=== PATIENT | female | born 1960 | race Hispanic/Latino ===

== ENCOUNTER 2019-12-22 16:56 | Inpatient (IN) | payer OTHER, SELFPAY ==
[~2019-12-22] VITALS: Ht 162.6 cm; Wt 66.7 kg
[2019-12-22 17:26] LABS: BASOPHILS % (AUTO) 0.7 % (0.0-5.0); HEMATOCRIT 24.6 % (36-48); LYMPHOCYTES % (AUTO) 9.6 % (21.0-51.0); MEAN CORPUSCULAR HEMOGLOBIN 29.2 pg (27.0-33.0); MEAN CORPUSCULAR VOLUME 83.4 fL (79-99); MONOCYTES % (AUTO) 24.4 % (3.0-13.0); NEUTROPHILS % (AUTO) 64.6 % (40.0-77.0); PLATELET COUNT (AUTO) 67 K/uL (130-400); RED BLOOD CELL COUNT(AUTO) 2.95 MIL/uL (4.00-5.50); RED CELL DISTRIBUTION WIDTH 16.2 % (11.0-15.5); WHITE BLOOD COUNT (AUTO) 1.4 K/uL (4.8-10.8)
[2019-12-22 17:35] LABS: CARBON DIOXIDE 23 mmol/L (21-32); CHLORIDE 93 mmol/L (101-111); CREATININE 0.6 mg/dL (0.5-1.5); GLOMERULAR FILTR. RATE CALC 109 mL/min (>60); GLUCOSE,RANDOM 119 mg/dL (70-105); POTASSIUM 3.2 mmol/L (3.5-5.1); SODIUM SERUM 126 mmol/L (136-145); UREA NITROGEN, BLOOD 16 mg/dL (7-18)
[2019-12-22 17:38] LABS: INR 0.97 (0.85-1.15); PARTIAL THROMBOPLASTIN TIME 34.7 SEC (26.3-35.5); PROTHROMBIN TIME 10.5 SEC (9.6-11.6)
[2019-12-22] MEDS ORDERED: ZOSYN 3.375GM+NS 50ML 50 ML IV ONE (17:53)
[2019-12-22 17:54] LABS: ALANINE AMINOTRANSFERASE 164 U/L (12-78); ALBUMIN 2.4 g/dL (3.5-5.0); ASPARTATE AMINOTRANSFERASE 189 U/L (10-37); BILIRUBIN,TOTAL 0.8 mg/dL (0.2-1.0); CREATINE KINASE, TOTAL 117 U/L (21-232); MYOGLOBIN 152 ng/mL (10-92); TROPONIN I < 0.04 ng/mL (0.00-0.06)
[2019-12-22] MEDS ORDERED: HYDRALAZINE HCL 20 MG/ML VIAL IV PRN (19:30)
[2019-12-22] MEDS ORDERED: CEFTRIAXONE SODIUM 1 GM IVP SCH (19:30)
[2019-12-22] MEDS ORDERED: ACETAMINOPHEN 325 MG TAB PO PRN ×2 (19:30)
[2019-12-22] MEDS ORDERED: ERGOCALCIFEROL (VITAMIN D2) 50,000 UNIT CAPSULE PO ONE (19:30)
[2019-12-22] MEDS ORDERED: LACTULOSE 20 GM/30 ML UDCUP PO PRN (19:30)
[2019-12-22] MEDS ORDERED: ONDANSETRON HCL 4 MG/2 ML VIAL IV PRN (19:30)
[2019-12-22] MEDS ORDERED: POTASSIUM CHLORIDE 10MEQ/100ML 100 ML IV PRN (19:45)
[2019-12-22] MEDS ORDERED: POTASSIUM CHLORIDE 10% ELIXIR 20 MEQ/15 ML UDCUP PO PRN (19:45)
[2019-12-22] MEDS ORDERED: LIDOCAINE HCL-MPF 1% 2ML VIAL IV PRN (19:45)
[2019-12-22] MEDS ORDERED: ALBUTEROL INHALER 90MCG/INH IH PRN (20:00)
[2019-12-22] MEDS ORDERED: IOHEXOL-350 75 ML VIAL IV ONE (20:18)
[2019-12-22] MEDS ORDERED: DOXYCYCLINE 100MG+NS 250ML IV SCH (21:00)
[2019-12-22] MEDS ORDERED: INSULIN HUMULIN R 100 UNIT/ML 3ML SQ SCH (21:00)
[2019-12-22] MEDS ORDERED: METHYLPREDNISOLONE SOD SUCC 40MG/ML 1ML ONE (21:31)
[2019-12-22] MEDS ORDERED: DOXYCYCLINE 100MG+NS 250ML 250 ML IV ONE (21:31)
[2019-12-22] MEDS ORDERED: CEFTRIAXONE SODIUM 1 GM ONE (21:31)
[2019-12-22] MEDS ORDERED: ERGOCALCIFEROL (VITAMIN D2) 50,000 UNIT CAPSULE ONE (21:31)
[2019-12-23] MEDS ORDERED: ACETAMINOPHEN 325 MG TAB ONE ×2 (05:29→20:07)
[2019-12-23] MEDS ORDERED: METHYLPREDNISOLONE SOD SUCC 40MG/ML 1ML ONE ×4 (06:58→21:35)
[2019-12-23] MEDS ORDERED: CEFTRIAXONE SODIUM 500 MG VIAL ONE (07:30)
[2019-12-23] MEDS ORDERED: ZINC SULFATE 220 CAPSULE ONE (07:31)
[2019-12-23] MEDS ORDERED: DOXYCYCLINE HYCLATE 100 MG TABLET PO ONE (07:31)
[2019-12-23] MEDS ORDERED: ASCORBIC ACID 500 MG TAB ONE (07:31)
[2019-12-23] MEDS ORDERED: FAMOTIDINE/PF 20 MG/2 ML VIAL IV ONE ×2 (07:31→21:36)
[2019-12-23] MEDS ORDERED: SODIUM CHLORIDE 0.9% 50 ML IV ONE (07:32)
[2019-12-23 08:27] LABS: APPEARANCE,URINE Cloudy (CLEAR); BILIRUBIN,URINE Negative (NEGATIVE); COLOR,URINE Yellow (YELLOW); GLUCOSE, URINE (UA) Negative (NEGATIVE); KETONES,URINE Negative (NEGATIVE); LEUKOCYTE ESTERASE ,URINE Negative (NEGATIVE); NITRATE,URINE Negative (NEGATIVE); OCCULT BLOOD,URINE Trace (NEGATIVE); PROTEIN,URINE POS 1+ mg/dL (NEGATIVE); UROBILINOGEN,URINE 0.2 mg/dL (0.2-1.0)
[2019-12-23 08:34] LABS: RBC,URINE 0-1 /HPF (0-1)
[2019-12-23 08:35] LABS: BACTERIA,URINE Moderate /HPF (None Seen)
[2019-12-23] MEDS ORDERED: ZINC SULFATE 220 CAPSULE PO SCH (09:00)
[2019-12-23] MEDS ORDERED: ENOXAPARIN SODIUM 40 MG/0.4 ML SYRINGE SQ SCH (09:00)
[2019-12-23] MEDS ORDERED: POTASSIUM CHLORIDE 20 MEQ ERTAB PO ONE (11:35)
[2019-12-23] MEDS ORDERED: SODIUM CHLORIDE 0.9% 1000ML 1,000 ML IV SCH (15:00)
[2019-12-23 16:30] LABS: CREATININE 0.8 mg/dL (0.5-1.5); POTASSIUM 3.7 mmol/L (3.5-5.1)
[2019-12-23] MEDS ORDERED: DOXYCYCLINE 100MG+NS 250ML 250 ML IV ONE (21:36)
[2019-12-23] MEDS ORDERED: CEFTRIAXONE SODIUM 1 GM ONE (21:36)
[2019-12-24 06:32] LABS: CRP QUANTITATIVE 188.5 mg/L (0.00-9.0)
[2019-12-24 08:05] VITALS: BP 110/64
[2019-12-24] MEDS: FAMOTIDINE 20MG TAB 20 MG TAB PO SCH ×2 (09:00→21:46)
[2019-12-24] MEDS: ASCORBIC ACID 500 MG TAB PO SCH (09:00)
[2019-12-24 09:13] LABS: HEPATITIS A ANTIBODY IGM Negative (Negative); HEPATITIS B CORE IGM Negative (Negative); HEPATITIS Bs ANTIGEN SCREEN P Negative (Negative)
[2019-12-24] MEDS ORDERED: ASCORBIC ACID 500 MG TAB ONE (09:35)
[2019-12-24] MEDS ORDERED: METHYLPREDNISOLONE SOD SUCC 40MG/ML 1ML ONE (09:35)
[2019-12-24] MEDS ORDERED: ZINC SULFATE 220 CAPSULE ONE (09:36)
[2019-12-24] MEDS ORDERED: DOXYCYCLINE 100MG+NS 250ML 250 ML IV ONE (09:36)
[2019-12-24] MEDS ORDERED: FAMOTIDINE 20MG TAB 20 MG TAB ONE (09:36)
[2019-12-24] MEDS ORDERED: CEFTRIAXONE SODIUM 1 GM ONE (09:37)
[2019-12-24] MEDS ORDERED: LOSA100T58 PO (10:54)
[2019-12-24] MEDS ORDERED: ATOR10 PO (10:54)
[2019-12-24 11:30] LABS: POTASSIUM 3.3 mmol/L (3.5-5.1)
[2019-12-24 12:00] VITALS: BP 118/68
[2019-12-24] MEDS ORDERED: POTASSIUM CHLORIDE 20 MEQ ERTAB PO ONE (12:39)
[2019-12-24 13:57] LABS: CREATININE 0.8 mg/dL (0.5-1.5)
[2019-12-24] MEDS: METHYLPREDNISOLONE SOD SUCC 40MG/ML 1ML IVP SCH ×2 (14:00→21:46)
[2019-12-24 14:40] LABS: HEMATOCRIT 25.6 % (36-48); LYMPHOCYTES % (AUTO) 12.9 % (21.0-51.0); MEAN CORPUSCULAR HEMOGLOBIN 28.9 pg (27.0-33.0); MONOCYTES % (AUTO) 13.3 % (3.0-13.0); NEUTROPHILS % (AUTO) 72.8 % (40.0-77.0); PLATELET COUNT (AUTO) 124 K/uL (130-400); RED BLOOD CELL COUNT(AUTO) 3.01 MIL/uL (4.00-5.50); RED CELL DISTRIBUTION WIDTH 16.7 % (11.0-15.5); WHITE BLOOD COUNT (AUTO) 2.1 K/uL (4.8-10.8)
[2019-12-24 15:20] LABS: LYMPHOCYTES % (MANUAL) 19 % (22-44); MONOCYTES % (MANUAL) 7 % (2-9); REACTIVE LYMPHOCYTES 2 % (0-0); SEGMENTED NEUTROPHILS % 72 % (40-70)
[2019-12-24 15:21] LABS: MAN.DIFF COMMENT-IMPRESSION MANUAL DIFFERENTIAL
[2019-12-24 15:44] VITALS: BP 119/73
[2019-12-24 19:28] VITALS: BP 124/77
[2019-12-24] MEDS: CEFTRIAXONE SODIUM 1 GM IVP SCH (21:00)
[2019-12-24] MEDS: POTASSIUM CHLORIDE 20 MEQ ERTAB PO PRN (21:48)
[2019-12-24] MEDS: DOXYCYCLINE HYCLATE 100 MG TABLET PO SCH (21:51)
[2019-12-25] VITALS (14 sets, daily range): BP systolic 116–138; BP diastolic 52–85
[2019-12-25] MEDS: POTASSIUM CHLORIDE 20 MEQ ERTAB PO PRN
[2019-12-25 06:11] LABS: CRP QUANTITATIVE 118.3 mg/L (0.00-9.0)
[2019-12-25 07:41] LABS: HEMATOCRIT 24.8 % (36-48); LYMPHOCYTES % (AUTO) 15.6 % (21.0-51.0); MEAN CORPUSCULAR HEMOGLOBIN 28.7 pg (27.0-33.0); MEAN CORPUSCULAR HGB CONC 32.7 g/dL (32.0-36.0); MEAN CORPUSCULAR VOLUME 87.9 fL (79-99); MONOCYTES % (AUTO) 11.6 % (3.0-13.0); NEUTROPHILS % (AUTO) 72.1 % (40.0-77.0); PLATELET COUNT (AUTO) 159 K/uL (130-400); RED BLOOD CELL COUNT(AUTO) 2.82 MIL/uL (4.00-5.50); RED CELL DISTRIBUTION WIDTH 17.2 % (11.0-15.5); WHITE BLOOD COUNT (AUTO) 2.9 K/uL (4.8-10.8)
[2019-12-25 07:51] LABS: CREATININE 0.6 mg/dL (0.5-1.5); POTASSIUM 4.2 mmol/L (3.5-5.1)
[2019-12-25] MEDS ORDERED: ZINC SULFATE 220 CAPSULE ONE (08:47)
[2019-12-25] MEDS: DOXYCYCLINE HYCLATE 100 MG TABLET PO SCH ×2 (09:09→21:24)
[2019-12-25] MEDS: CEFTRIAXONE SODIUM 1 GM IVP SCH ×2 (09:09→21:24)
[2019-12-25] MEDS ORDERED: FENTANYL CITRATE PF 50 MCG/1 ML 2ML VIAL ONE (13:10)
[2019-12-25] MEDS ORDERED: MIDAZOLAM HCL 1 MG/ML 2ML VIAL ONE (13:10)
[2019-12-25] MEDS: ZINC SULFATE 220 CAPSULE PO SCH (17:37)
[2019-12-25] MEDS: ASCORBIC ACID 500 MG TAB PO SCH (17:38)
[2019-12-25] MEDS: FAMOTIDINE 20MG TAB 20 MG TAB PO SCH ×2 (17:39→21:24)
[2019-12-26] VITALS: BP 144/77
[2019-12-26 04:00] VITALS: BP 130/76
[2019-12-26 06:02] LABS: BASOPHILS % (AUTO) 0.2 % (0.0-5.0); HEMATOCRIT 29.1 % (36-48); LYMPHOCYTES % (AUTO) 27.2 % (21.0-51.0); MEAN CORPUSCULAR HEMOGLOBIN 28.6 pg (27.0-33.0); MEAN CORPUSCULAR VOLUME 86.6 fL (79-99); MONOCYTES % (AUTO) 13.9 % (3.0-13.0); NEUTROPHILS % (AUTO) 58.2 % (40.0-77.0); PLATELET COUNT (AUTO) 256 K/uL (130-400); RED BLOOD CELL COUNT(AUTO) 3.36 MIL/uL (4.00-5.50); RED CELL DISTRIBUTION WIDTH 17.2 % (11.0-15.5); WHITE BLOOD COUNT (AUTO) 5.6 K/uL (4.8-10.8)
[2019-12-26 06:16] LABS: CREATININE 0.6 mg/dL (0.5-1.5); POTASSIUM 3.8 mmol/L (3.5-5.1)
[2019-12-26 08:42] VITALS: BP 136/75
[2019-12-26] MEDS: FAMOTIDINE 20MG TAB 20 MG TAB PO SCH (08:47)
[2019-12-26] MEDS: DOXYCYCLINE HYCLATE 100 MG TABLET PO SCH (08:47)
[2019-12-26] MEDS: CEFTRIAXONE SODIUM 1 GM IVP SCH (08:47)
[2019-12-26] MEDS: ASCORBIC ACID 500 MG TAB PO SCH (08:47)
[2019-12-26] MEDS ORDERED: DiphenhydrAMINE HCL 25 MG/10 ML ELIXIR UDCUP PO PRN (10:45)
[2019-12-26 12:00] VITALS: BP_SYST 127; BP_SYST 138; BP_DIAS 73; BP_DIAS 82
[2019-12-26] MEDS: ZINC SULFATE 220 CAPSULE PO SCH (12:09)
[2019-12-26 16:00] VITALS: BP 138/84
[2019-12-26] MEDS ORDERED: ALBUHFA IH (17:43)
[2019-12-26 18:52] VITALS: BP 140/89
== END 2019-12-26 19:52 | disposition home or self-care (01) | DRG 809 ==
LOC: EDH 16:56 → EDHIP 16:57 → 3AH 12-24 19:07 → 3CH 12-25 14:12
PROVIDERS: ADMIT Hospitalist; ATTEND Hospitalist
PROC: 07DR3ZX Extraction of Iliac Bone Marrow, Percutaneous Approach, Diagnostic (ICD-10-PCS; principal; 2019-12-25)
DX: D61.818 Other pancytopenia (principal); E87.1 Hypo-osmolality and hyponatremia; R79.89 Other specified abnormal findings of blood chemistry; E87.6 Hypokalemia; R59.0 Localized enlarged lymph nodes; R74.8 Abnormal levels of other serum enzymes; R19.7 Diarrhea, unspecified; R50.81 Fever presenting with conditions classified elsewhere; I10 Essential (primary) hypertension; E78.5 Hyperlipidemia, unspecified; E78.00 Pure hypercholesterolemia, unspecified; Z20.828 Contact with and (suspected) exposure to other viral communicable diseases; Z90.710 Acquired absence of both cervix and uterus
CPT/HCPCS: 36415; 38222; 71045; 71275; 76700; 77012; 80048; 80053; 80074; 81001; 82550; 82728; 82948; 83605; 83615; 83874; 84132; 84145; 84484; 85025; 85378; 85610; 85730; 86140; 86850; 86900; 86901; 87040; 87088; 88184; 88185; 88305; 88311; 88313; 88360; 93005; 99152; 99153; G0378; J0696; J2250; J2543; J2920; J3010; J3490; Q9967; U0003

== ENCOUNTER 2020-05-22 17:35 | Emergency (ER) | payer OTHER ==
[~2020-05-22 17:35] MED LIST: ALBUHFA IH; ATOR10 PO; LOSA100T58 PO
[2020-05-22] MEDS ORDERED: ACETAMINOPHEN 325 MG TAB ONE (18:34)
[2020-05-22 19:12] LABS: CREATININE 0.9 mg/dL (0.5-1.5); POTASSIUM 3.5 mmol/L (3.5-5.1)
[2020-05-22 19:15] LABS: LYMPHOCYTES % (AUTO) 9.9 % (21.0-51.0); MEAN CORPUSCULAR HEMOGLOBIN 27.6 pg (27.0-33.0); MEAN CORPUSCULAR HGB CONC 33.3 g/dL (32.0-36.0); MEAN CORPUSCULAR VOLUME 82.8 fL (79-99); MONOCYTES % (AUTO) 14.4 % (3.0-13.0); NEUTROPHILS % (AUTO) 74.6 % (40.0-77.0); PLATELET COUNT (AUTO) 159 K/uL (130-400); RED CELL DISTRIBUTION WIDTH 18.3 % (11.0-15.5); WHITE BLOOD COUNT (AUTO) 1.8 K/uL (4.8-10.8)
[2020-05-22 19:17] LABS: ALBUMIN 2.5 g/dL (3.5-5.0); TOTAL PROTEIN, SERUM 6.4 g/dL (6.0-8.3)
[2020-05-22 19:35] LABS: INR 1.06 (0.85-1.15); PARTIAL THROMBOPLASTIN TIME 36.2 SEC (26.3-35.5); PROTHROMBIN TIME 11.4 SEC (9.6-11.6)
[2020-05-22 20:21] LABS: BAND NEUTROPHILS % (MANUAL) 1 % (0-2); LYMPHOCYTES % (MANUAL) 9 % (22-44); MAN.DIFF COMMENT-IMPRESSION MANUAL DIFFERENTIAL; MONOCYTES % (MANUAL) 13 % (2-9); SEGMENTED NEUTROPHILS % 77 % (40-70)
[2020-05-22 20:22] LABS: PLATELET MORPHOLOGY COMMENT ADEQUATE
[2020-05-22 20:38] LABS: ABG BASE EXCESS 0.7 mmol/L (-2.0-3.0); ABG HCO3 22.3 mmol/L (21.0-28.0); ABG PCO2 28 mmHg (32-45)
[2020-05-26] MEDS ORDERED: DOXY100T2 PO (05:34)
[2020-05-26] MEDS ORDERED: ALBUHFA IH (05:34)
[2020-05-26] MEDS ORDERED: FOLI0.4T2 PO (05:34)
[2020-05-26] MEDS ORDERED: ACET-2743 PO (05:34)
[2020-05-26] MEDS ORDERED: FERR240T6 PO (05:34)
== END 2020-05-22 21:47 | disposition home or self-care (01) ==
LOC: EDH 17:35
DX: J20.9 Acute bronchitis, unspecified (principal); Z20.828 Contact with and (suspected) exposure to other viral communicable diseases; I10 Essential (primary) hypertension; E78.00 Pure hypercholesterolemia, unspecified
CPT/HCPCS: 36415; 36600; 71045; 80053; 82550; 82803; 83605; 84484; 85025; 85610; 85730; 87040 ×2; 87426; 87804 ×2; 99284; U0003

== ENCOUNTER 2020-08-22 11:59 | Inpatient (IN) | payer OTHER ==
[~2020-08-22] VITALS: Ht 172.7 cm; Wt 76.2 kg
[~2020-08-22 11:59] MED LIST changes: +ACET-2743 PO; -ATOR10 PO; +DOXY100T2 PO; +FERR240T6 PO; +FOLI0.4T6 PO; -LOSA100T58 PO
[2020-08-22] MEDS ORDERED: 0.9%NACL 1000ML 2,000 ML IV ONE (12:46)
[2020-08-22 12:49] LABS: LYMPHOCYTES % (AUTO) 7.1 % (21.0-51.0); MEAN CORPUSCULAR HEMOGLOBIN 28.6 pg (27.0-33.0); MEAN CORPUSCULAR HGB CONC 34.9 g/dL (32.0-36.0); MEAN CORPUSCULAR VOLUME 81.9 fL (79-99); MONOCYTES % (AUTO) 16.7 % (3.0-13.0); NEUTROPHILS % (AUTO) 75.6 % (40.0-77.0); PLATELET COUNT (AUTO) 72 K/uL (130-400); WHITE BLOOD COUNT (AUTO) 1.6 K/uL (4.8-10.8)
[2020-08-22 12:56] LABS: HEMATOCRIT 17.2 % (36-48)
[2020-08-22 13:06] LABS: INR 1.35 (0.85-1.15); PROTHROMBIN TIME 14.3 SEC (9.6-11.6)
[2020-08-22 13:08] LABS: PARTIAL THROMBOPLASTIN TIME 52.4 SEC (26.3-35.5)
[2020-08-22 13:23] LABS: ALBUMIN 1.6 g/dL (3.5-5.0); ASPARTATE AMINOTRANSFERASE 90 U/L (10-37); BILIRUBIN,TOTAL 2.8 mg/dL (0.2-1.0); CARBON DIOXIDE 21 mmol/L (21-32); CREATINE KINASE, TOTAL 64 U/L (21-232); CREATININE 1.7 mg/dL (0.5-1.5); GLOMERULAR FILTR. RATE CALC 33 mL/min (>60); GLUCOSE,RANDOM 135 mg/dL (70-105); MYOGLOBIN 267 ng/mL (10-92); POTASSIUM 3.1 mmol/L (3.5-5.1); TOTAL PROTEIN, SERUM 4.5 g/dL (6.0-8.3); TROPONIN I < 0.04 ng/mL (0.00-0.06); UREA NITROGEN, BLOOD 54 mg/dL (7-18)
[2020-08-22 13:33] LABS: SODIUM SERUM 122 mmol/L (136-145)
[2020-08-22 13:34] LABS: BAND NEUTROPHILS % (MANUAL) 12 % (0-2); LYMPHOCYTES % (MANUAL) 28 % (22-44); MAN.DIFF COMMENT-IMPRESSION MANUAL DIFFERENTIAL; MONOCYTES % (MANUAL) 4 % (2-9); PLATELET MORPHOLOGY COMMENT SLIGHTLY DECREASED; SEGMENTED NEUTROPHILS % 56 % (40-70)
[2020-08-22 13:51] LABS: ALANINE AMINOTRANSFERASE 26 U/L (12-78)
[2020-08-22 14:00] LABS: APPEARANCE,URINE Turbid (CLEAR); BILIRUBIN,URINE Small (NEGATIVE); COLOR,URINE Dark Yellow (YELLOW); GLUCOSE, URINE (UA) Negative (NEGATIVE); KETONES,URINE Trace mg/dL (NEGATIVE); LEUKOCYTE ESTERASE ,URINE Small (NEGATIVE); NITRATE,URINE Positive (NEGATIVE); OCCULT BLOOD,URINE Negative (NEGATIVE); PROTEIN,URINE POS 1+ mg/dL (NEGATIVE)
[2020-08-22 14:01] LABS: CHLORIDE 89 mmol/L (101-111)
[2020-08-22 14:09] LABS: AMORPHOUS SEDIMENT,UR Moderate /LPF (None Seen); BACTERIA,URINE Few /HPF (None Seen); MUCUS,URINE Moderate LPF (None Seen); SQUAMOUS EPITHELIAL CELL,UR Moderate /HPF (0-2)
[2020-08-22] MEDS ORDERED: 0.9%NACL 1000ML 1,000 ML IV ONE (15:46)
[2020-08-22 17:50] VITALS: BP 111/58
[2020-08-22] MEDS: CEFTRIAXONE 1G VIAL IVP SCH (18:11)
[2020-08-22] MEDS: 1/2 NS 1000ML 1,000 ML IV SCH ×2 (18:11→23:51)
[2020-08-22] MEDS ORDERED: CYAN-35 PO (18:34)
[2020-08-22] MEDS ORDERED: RIFA300C4 PO (18:34)
[2020-08-22] MEDS ORDERED: AZIT500T PO (18:34)
[2020-08-22 19:24] LABS: HEMATOCRIT 21.9 % (36-48)
[2020-08-22] MEDS: ACETAMINOPHEN 325 MG TAB PO PRN ×2 (19:41→23:51)
[2020-08-22 20:00] VITALS: BP 112/77
[2020-08-23] VITALS: BP 107/51
[2020-08-23 04:00] VITALS: BP 100/57
[2020-08-23 04:22] LABS: LYMPHOCYTES % (AUTO) 10.9 % (21.0-51.0); MEAN CORPUSCULAR HEMOGLOBIN 28.4 pg (27.0-33.0); MEAN CORPUSCULAR HGB CONC 33.3 g/dL (32.0-36.0); MEAN CORPUSCULAR VOLUME 85.2 fL (79-99); MONOCYTES % (AUTO) 17.6 % (3.0-13.0); NEUTROPHILS % (AUTO) 69.7 % (40.0-77.0); PLATELET COUNT (AUTO) 55 K/uL (130-400); RED BLOOD CELL COUNT(AUTO) 2.36 MIL/uL (4.00-5.50); RED CELL DISTRIBUTION WIDTH 17.5 % (11.0-15.5); WHITE BLOOD COUNT (AUTO) 2.2 K/uL (4.8-10.8)
[2020-08-23 04:28] LABS: HEMATOCRIT 20.1 % (36-48)
[2020-08-23 04:39] LABS: ALBUMIN 1.4 g/dL (3.5-5.0); BILIRUBIN,TOTAL 3.8 mg/dL (0.2-1.0); CREATININE 1.2 mg/dL (0.5-1.5); POTASSIUM 3.8 mmol/L (3.5-5.1)
[2020-08-23] MEDS ORDERED: 0.9% NACL 500ML IV.SOLN 500 ML IV ONE (04:59)
[2020-08-23 07:31] VITALS: BP 138/72
[2020-08-23 08:05] LABS: HEMATOCRIT 25.9 % (36-48)
[2020-08-23] MEDS: PANTOPRAZOLE 40 MG TAB DR PO SCH (08:55)
[2020-08-23] MEDS: ACETAMINOPHEN 325 MG TAB PO PRN ×2 (11:02→16:18)
[2020-08-23 11:24] VITALS: BP 130/66
[2020-08-23] MEDS: CEFTRIAXONE 1G VIAL IVP SCH (13:52)
[2020-08-23 15:55] VITALS: BP 105/58
[2020-08-23 20:07] VITALS: BP 97/48
[2020-08-24] VITALS (16 sets, daily range): BP systolic 84–124; BP diastolic 40–94
[2020-08-24] MEDS: ACETAMINOPHEN 325 MG TAB PO PRN ×3 (02:42→18:24)
[2020-08-24] MEDS: PANTOPRAZOLE 40 MG TAB DR PO SCH (09:00)
[2020-08-24] MEDS: ONDANSETRON 4MG INJ IVP PRN (10:51)
[2020-08-24] MEDS ORDERED: MIDAZOLAM HCL 1 MG/ML 2ML VIAL ONE (12:51)
[2020-08-24] MEDS ORDERED: FENTANYL CITRATE PF 50 MCG/1 ML 2ML VIAL ONE (12:51)
[2020-08-24] MEDS: 0.9%NACL 1000ML 1,000 ML IV SCH (15:04)
[2020-08-24] MEDS: CEFTRIAXONE 1G VIAL IVP SCH (15:14)
[2020-08-24] MEDS ORDERED: COMPOUND IV REFRIGERATED 1 EACH IVSOLN MISC PRN (18:00)
[2020-08-24] MEDS ORDERED: COMPOUND IV MISC 1 EACH IVSOLN MISC PRN (18:00)
[2020-08-24] MEDS: DEXAMETHASONE IV SCH (21:00)
[2020-08-24] MEDS ORDERED: DEXAMETHASONE SOD PHOSPHATE 4 MG/ML 1ML VIAL IVP SCH (21:00)
[2020-08-24] MEDS: [UNRECOGNIZED DRUG - OTHER] IV SCH (21:00)
[2020-08-25] VITALS (7 sets, daily range): BP systolic 90–119; BP diastolic 44–65
[2020-08-25] MEDS: 0.9%NACL 1000ML 1,000 ML IV SCH ×2 (00:26→16:30)
[2020-08-25 05:18] LABS: HEMATOCRIT 26.6 % (36-48); MEAN CORPUSCULAR HEMOGLOBIN 28.3 pg (27.0-33.0); MEAN CORPUSCULAR HGB CONC 34.6 g/dL (32.0-36.0); MEAN CORPUSCULAR VOLUME 81.8 fL (79-99); PLATELET COUNT (AUTO) 29 K/uL (130-400); RED BLOOD CELL COUNT(AUTO) 3.25 MIL/uL (4.00-5.50); RED CELL DISTRIBUTION WIDTH 16.7 % (11.0-15.5)
[2020-08-25 05:39] LABS: ALBUMIN 1.5 g/dL (3.5-5.0); BILIRUBIN,TOTAL 3.8 mg/dL (0.2-1.0); CREATININE 1.7 mg/dL (0.5-1.5); POTASSIUM 4.1 mmol/L (3.5-5.1); TOTAL PROTEIN, SERUM 4.3 g/dL (6.0-8.3)
[2020-08-25] MEDS: ACETAMINOPHEN 325 MG TAB PO PRN ×2 (06:09→10:10)
[2020-08-25] MEDS: PANTOPRAZOLE 40 MG TAB DR PO SCH (10:10)
[2020-08-25] MEDS: CEFTRIAXONE 1G VIAL IVP SCH (14:41)
[2020-08-25] MEDS: DEXAMETHASONE IV SCH (14:41)
[2020-08-25] MEDS: [UNRECOGNIZED DRUG - OTHER] IV SCH (14:41)
[2020-08-25] MEDS: ONDANSETRON 4MG INJ IVP PRN (16:20)
[2020-08-26] MEDS: ACETAMINOPHEN 325 MG TAB PO PRN ×2 (01:57→11:30)
[2020-08-26] MEDS ORDERED: METOPROLOL TARTRATE 50 MG TAB PO ONE (02:45)
[2020-08-26 03:56] VITALS: BP 101/49
[2020-08-26] MEDS: 0.9%NACL 1000ML 1,000 ML IV SCH ×2 (04:15→20:22)
[2020-08-26 08:00] VITALS: BP 84/50
[2020-08-26] MEDS ORDERED: DEXAMETHASONE SOD PHOSPHATE 4 MG/ML 1ML VIAL ONE (08:30)
[2020-08-26] MEDS: PANTOPRAZOLE 40 MG TAB DR PO SCH (08:31)
[2020-08-26] MEDS: DEXAMETHASONE 10MG/ML 1ML VIAL 40 MG in 0.9%NACL 50ML 50 ML IV SCH (09:00)
[2020-08-26 12:00] VITALS: BP 98/55
[2020-08-26] MEDS: CEFTRIAXONE 1G VIAL IVP SCH (15:14)
[2020-08-26 16:00] VITALS: BP 98/55
[2020-08-26 19:50] VITALS: BP 90/54
[2020-08-27] VITALS (7 sets, daily range): BP systolic 95–138; BP diastolic 56–82
[2020-08-27] MEDS: ACETAMINOPHEN 325 MG TAB PO PRN (04:19)
[2020-08-27 05:19] LABS: HEMATOCRIT 24.3 % (36-48); MEAN CORPUSCULAR HEMOGLOBIN 27.4 pg (27.0-33.0); MEAN CORPUSCULAR HGB CONC 32.9 g/dL (32.0-36.0); MEAN CORPUSCULAR VOLUME 83.2 fL (79-99); PLATELET COUNT (AUTO) 20 K/uL (130-400); RED BLOOD CELL COUNT(AUTO) 2.92 MIL/uL (4.00-5.50); RED CELL DISTRIBUTION WIDTH 16.9 % (11.0-15.5); WHITE BLOOD COUNT (AUTO) 2.2 K/uL (4.8-10.8)
[2020-08-27 06:09] LABS: BAND NEUTROPHILS % (MANUAL) 5 % (0-2); LYMPHOCYTES % (MANUAL) 3 % (22-44); MAN.DIFF COMMENT-IMPRESSION MANUAL DIFFERENTIAL; MONOCYTES % (MANUAL) 5 % (2-9); SEGMENTED NEUTROPHILS % 87 % (40-70)
[2020-08-27 06:10] LABS: PLATELET MORPHOLOGY COMMENT DECREASED
[2020-08-27 08:34] LABS: RETICULOCYTE % (AUTO) 0.39 % (0.42-2.23)
[2020-08-27 08:40] LABS: ALBUMIN 1.3 g/dL (3.5-5.0); BILIRUBIN,TOTAL 5.7 mg/dL (0.2-1.0); CREATININE 1.5 mg/dL (0.5-1.5); POTASSIUM 3.9 mmol/L (3.5-5.1); TOTAL PROTEIN, SERUM 3.8 g/dL (6.0-8.3)
[2020-08-27] MEDS: DEXAMETHASONE 10MG/ML 1ML VIAL 40 MG in 0.9%NACL 50ML 50 ML IV SCH (09:30)
[2020-08-27] MEDS: 0.9%NACL 1000ML 1,000 ML IV SCH ×2 (09:30→11:33)
[2020-08-27] MEDS: PANTOPRAZOLE 40 MG TAB DR PO SCH (09:30)
[2020-08-27] MEDS: CEFTRIAXONE 1G VIAL IVP SCH (15:15)
[2020-08-28 05:09] VITALS: BP 120/65
[2020-08-28 08:00] VITALS: BP 130/74
[2020-08-28] MEDS: PANTOPRAZOLE 40 MG TAB DR PO SCH (09:44)
[2020-08-28] MEDS: DEXAMETHASONE 10MG/ML 1ML VIAL 40 MG in 0.9%NACL 50ML 50 ML IV SCH (09:44)
[2020-08-28] MEDS: 0.9%NACL 1000ML 1,000 ML IV SCH (11:10)
[2020-08-28 11:38] VITALS: BP 124/71
[2020-08-28] MEDS: CEFTRIAXONE 1G VIAL IVP SCH (13:23)
[2020-08-28] MEDS ORDERED: GADODIAMIDE 10 MMOL/20 ML VIAL IV ONE (14:02)
[2020-08-28 16:10] VITALS: BP 127/73
[2020-08-28 20:21] VITALS: BP 126/65
[2020-08-29] VITALS (7 sets, daily range): BP systolic 102–161; BP diastolic 65–80
[2020-08-29 04:39] LABS: LYMPHOCYTES % (AUTO) 4.2 % (21.0-51.0); MEAN CORPUSCULAR HGB CONC 33.8 g/dL (32.0-36.0); MEAN CORPUSCULAR VOLUME 82.9 fL (79-99); NEUTROPHILS % (AUTO) 80.2 % (40.0-77.0); PLATELET COUNT (AUTO) 14 K/uL (130-400); RED BLOOD CELL COUNT(AUTO) 2.46 MIL/uL (4.00-5.50); RED CELL DISTRIBUTION WIDTH 16.4 % (11.0-15.5); WHITE BLOOD COUNT (AUTO) 1.7 K/uL (4.8-10.8)
[2020-08-29 04:47] LABS: HEMATOCRIT 20.4 % (36-48)
[2020-08-29 05:00] LABS: ALBUMIN 1.3 g/dL (3.5-5.0); BILIRUBIN,TOTAL 5.8 mg/dL (0.2-1.0); CREATININE 1.1 mg/dL (0.5-1.5); POTASSIUM 3.8 mmol/L (3.5-5.1); TOTAL PROTEIN, SERUM 3.7 g/dL (6.0-8.3)
[2020-08-29] MEDS: 0.9%NACL 1000ML 1,000 ML IV SCH ×2 (09:57→15:04)
[2020-08-29] MEDS: PANTOPRAZOLE 40 MG TAB DR PO SCH (09:58)
[2020-08-29] MEDS: DEXAMETHASONE 10MG/ML 1ML VIAL 40 MG in 0.9%NACL 50ML 50 ML IV SCH (09:58)
[2020-08-29] MEDS ORDERED: ALBUMIN (HUMAN) 25% 50 ML IV SCH (11:15)
[2020-08-29] MEDS: ACETAMINOPHEN 325 MG TAB PO PRN (11:59)
[2020-08-29] MEDS ORDERED: PHARMACY COMMUNICATION MISC SCH (14:00)
[2020-08-29] MEDS: CEFTRIAXONE 1G VIAL IVP SCH (19:21)
[2020-08-30] VITALS (7 sets, daily range): BP systolic 122–180; BP diastolic 73–87
[2020-08-30 05:37] LABS: MEAN CORPUSCULAR HEMOGLOBIN 28.1 pg (27.0-33.0); MEAN CORPUSCULAR HGB CONC 34.6 g/dL (32.0-36.0); MONOCYTES % (AUTO) 9.5 % (3.0-13.0); NEUTROPHILS % (AUTO) 86.3 % (40.0-77.0); PLATELET COUNT (AUTO) 12 K/uL (130-400); RED BLOOD CELL COUNT(AUTO) 2.21 MIL/uL (4.00-5.50); WHITE BLOOD COUNT (AUTO) 1.7 K/uL (4.8-10.8)
[2020-08-30 05:39] LABS: HEMATOCRIT 17.9 % (36-48)
[2020-08-30 06:10] LABS: ALBUMIN 1.2 g/dL (3.5-5.0); BILIRUBIN,DIRECT 3.2 mg/dL (0.0-0.3); BILIRUBIN,TOTAL 3.6 mg/dL (0.2-1.0); POTASSIUM 3.6 mmol/L (3.5-5.1); TOTAL PROTEIN, SERUM 3.6 g/dL (6.0-8.3)
[2020-08-30] MEDS: PANTOPRAZOLE 40 MG TAB DR PO SCH (09:27)
[2020-08-30] MEDS: DEXAMETHASONE 10MG/ML 1ML VIAL 40 MG in 0.9%NACL 50ML 50 ML IV SCH (09:28)
[2020-08-30] MEDS: 0.9%NACL 1000ML 1,000 ML IV SCH (11:04)
[2020-08-30] MEDS ORDERED: DEXAMETHASONE 10MG/ML 1ML VIAL 10 MG in 0.9%NACL 50ML 50 ML IV SCH (13:45)
[2020-08-30] MEDS: PHARMACY COMMUNICATION MISC SCH (14:11)
[2020-08-30] MEDS ORDERED: DEXAMETHASONE SOD PHOSPHATE 4 MG/ML 1ML VIAL IVP SCH (14:15)
[2020-08-30] MEDS ORDERED: DiphenhydrAMINE HCL 50 MG/ML VIAL IV SCH (15:00)
[2020-08-30] MEDS: CEFTRIAXONE 1G VIAL IVP SCH (16:00)
[2020-08-31] MEDS: ACETAMINOPHEN 325 MG TAB PO PRN (00:43)
[2020-08-31 04:00] VITALS: BP 139/82
[2020-08-31] MEDS: PHARMACY COMMUNICATION MISC SCH ×4 (05:52→17:54)
[2020-08-31 06:15] LABS: HEMATOCRIT 21.2 % (36-48); LYMPHOCYTES % (AUTO) 4.6 % (21.0-51.0); MEAN CORPUSCULAR HGB CONC 35.4 g/dL (32.0-36.0); MEAN CORPUSCULAR VOLUME 81.9 fL (79-99); MONOCYTES % (AUTO) 13.7 % (3.0-13.0); NEUTROPHILS % (AUTO) 80.9 % (40.0-77.0); PLATELET COUNT (AUTO) 18 K/uL (130-400); RED BLOOD CELL COUNT(AUTO) 2.59 MIL/uL (4.00-5.50); RED CELL DISTRIBUTION WIDTH 15.3 % (11.0-15.5); WHITE BLOOD COUNT (AUTO) 1.3 K/uL (4.8-10.8)
[2020-08-31 06:16] LABS: POTASSIUM 3.4 mmol/L (3.5-5.1)
[2020-08-31] MEDS: 0.9%NACL 1000ML 1,000 ML IV SCH (06:22)
[2020-08-31 08:00] VITALS: BP 137/89
[2020-08-31] MEDS: DEXAMETHASONE 10MG/ML 1ML VIAL 40 MG in 0.9%NACL 50ML 50 ML IV SCH (08:41)
[2020-08-31] MEDS: PANTOPRAZOLE 40 MG TAB DR PO SCH (08:41)
[2020-08-31 12:00] VITALS: BP 143/92
[2020-08-31 14:49] LABS: INR 1.09 (0.85-1.15); PROTHROMBIN TIME 11.8 SEC (9.6-11.6)
[2020-08-31] MEDS: CEFTRIAXONE 1G VIAL IVP SCH (16:49)
[2020-08-31] MEDS ORDERED: DiphenhydrAMINE HCL 50 MG/ML VIAL IV SCH (18:00)
[2020-08-31] MEDS ORDERED: DiphenhydrAMINE HCL 50 MG/ML VIAL ONE (18:11)
[2020-08-31 19:53] LABS: COLLECTION PERIOD,URINE 24 HR; TOTAL VOLUME 24HRS,URINE 1300 mL; TPROTEIN TIMED,URINE 70 mg/dL; TPROTEIN U,24HR CALC 910 mg/24HR (0-165)
[2020-08-31 20:01] VITALS: BP 170/87
== END 2020-08-31 22:13 | disposition short-term general hospital (02) | DRG 660 ==
LOC: EDH 11:59 → UNDOADMOB 13:38 → INTOOBSV 13:38 → EDHIP 13:38 → OBSVTOIN 13:38 → 3CH 13:38 → 4AH 17:19 → 3CH 08-24 23:35 → 4CH 08-25 01:35 → 3CH 08-25 01:35
PROVIDERS: ADMIT Internal Medicine; ATTEND Internal Medicine
PROC: 07DR3ZX Extraction of Iliac Bone Marrow, Percutaneous Approach, Diagnostic (ICD-10-PCS; 2020-08-24)
PROC: 30233N1 Transfusion of Nonautologous Red Blood Cells into Peripheral Vein, Percutaneous Approach (ICD-10-PCS; 2020-08-30)
PROC: 02HV33Z Insertion of Infusion Device into Superior Vena Cava, Percutaneous Approach (ICD-10-PCS; 2020-08-30)
PROC: 30233R1 Transfusion of Nonautologous Platelets into Peripheral Vein, Percutaneous Approach (ICD-10-PCS; principal; 2020-08-31)
DX: D61.818 Other pancytopenia (principal); E87.1 Hypo-osmolality and hyponatremia; E86.0 Dehydration; N18.9 Chronic kidney disease, unspecified; N39.0 Urinary tract infection, site not specified; K80.20 Calculus of gallbladder without cholecystitis without obstruction; C81.90 Hodgkin lymphoma, unspecified, unspecified site; E88.09 Other disorders of plasma-protein metabolism, not elsewhere classified; I12.9 Hypertensive chronic kidney disease with stage 1 through stage 4 chronic kidney disease, or unspecified chronic kidney disease; N17.9 Acute kidney failure, unspecified; J44.9 Chronic obstructive pulmonary disease, unspecified; J30.1 Allergic rhinitis due to pollen; S40.021A Contusion of right upper arm, initial encounter; W18.39XA Other fall on same level, initial encounter; Y93.89 Activity, other specified; Y92.89 Other specified places as the place of occurrence of the external cause; Y99.8 Other external cause status; Z74.01 Bed confinement status; R16.2 Hepatomegaly with splenomegaly, not elsewhere classified; R53.81 Other malaise; R59.1 Generalized enlarged lymph nodes; R63.4 Abnormal weight loss; R74.8 Abnormal levels of other serum enzymes; Z20.822 Contact with and (suspected) exposure to COVID-19
CPT/HCPCS: 36415; 36430; 38222; 71045; 74181; 76700; 77012; 80048; 80053; 80076; 81001; 82247; 82248; 82270; 82550; 82575; 82955; 83010; 83020; 83540; 83550; 83605; 83874; 84132; 84145; 84156; 84484; 85014; 85018; 85025; 85027; 85045; 85610; 85660; 85730; 86480; 86850; 86880; 86900; 86901; 86923; 86999; 87040; 87088; 87426; 88184; 88185; 88305; 88311; 88312; 88313; 88341; 88342; 88360; 88365; 93005; 99152; 99153; 99291; A9579; C1894; G0378; J0696; J1100; J1200; J2250; J2405; J3010; J7030; J7040; P9016; P9034; U0003

== ENCOUNTER 2024-03-14 10:26 | Observation (INO) | payer OTHER ==
[~2024-03-14] VITALS: Ht 152.4 cm; Wt 76.2 kg
[~2024-03-14 10:26] MED LIST changes: +AZIT500T PO; +CYAN-35 PO; -DOXY100T2 PO; +RIFA300C66 PO
[2024-03-14 11:07] LABS: HEMATOCRIT 37.9 % (36-48); MEAN CORPUSCULAR HEMOGLOBIN 31.1 pg (27.0-33.0); MEAN CORPUSCULAR VOLUME 91.3 fL (79-99); RED BLOOD CELL COUNT(AUTO) 4.15 MIL/uL (4.00-5.50); RED CELL DISTRIBUTION WIDTH 12.8 % (11.0-15.5); WHITE BLOOD COUNT (AUTO) 5.3 K/uL (4.8-10.8)
[2024-03-14 11:25] VITALS: O2SAT 97
[2024-03-14 11:32] LABS: ALBUMIN 3.7 g/dL (3.5-5.0); BILIRUBIN,DIRECT 0.2 mg/dL (0.0-0.3); CREATININE 0.7 mg/dL (0.5-1.0)
[2024-03-14 11:36] VITALS: BP 145/72; PULSE 72; RESP 18; TEMP 97.9
[2024-03-14] MEDS ORDERED: CALC-322 PO (11:40)
[2024-03-14] MEDS ORDERED: ondanSETRON 4MG INJ IVP PRN (12:30)
[2024-03-14] MEDS ORDERED: guaiFENesin-DM 200/20MG 10ML PO PRN (12:30)
[2024-03-14] MEDS ORDERED: ZOLPidem TARTrate 5 MG TAB PO PRN (12:30)
[2024-03-14] MEDS: CEFTRIAXONE 2GM VIAL IVPB SCH (13:01)
[2024-03-14] MEDS: DEXTROSE 5 %-0.45 % NACL 1,000 ML IV SCH (13:03)
[2024-03-14] MEDS ORDERED: FLUT1BLS3 IH (14:59)
[2024-03-14] MEDS: acetaMINOPHEN 325 MG TAB PO PRN (15:46)
[2024-03-14 16:00] VITALS: BP 129/80; PULSE 69; RESP 18; TEMP 98.1
[2024-03-14 20:00] VITALS: BP 127/70; PULSE 63; RESP 19; TEMP 98.1
[2024-03-15] VITALS: BP_SYST 119; BP_SYST 147; BP_DIAS 69; BP_DIAS 89; PULSE 55; RESP 18; RESP 20; TEMP 98.1
[2024-03-15 04:00] VITALS: BP 139/76; PULSE 66; RESP 16; TEMP 98
[2024-03-15 04:44] LABS: HEMATOCRIT 34.3 % (36-48); MEAN CORPUSCULAR HEMOGLOBIN 30.7 pg (27.0-33.0); MEAN CORPUSCULAR HGB CONC 33.5 g/dL (32.0-36.0); MEAN CORPUSCULAR VOLUME 91.5 fL (79-99); RED BLOOD CELL COUNT(AUTO) 3.75 MIL/uL (4.00-5.50); RED CELL DISTRIBUTION WIDTH 12.7 % (11.0-15.5); WHITE BLOOD COUNT (AUTO) 4.1 K/uL (4.8-10.8)
[2024-03-15 05:03] LABS: ALBUMIN 3.2 g/dL (3.5-5.0); BILIRUBIN,DIRECT 0.1 mg/dL (0.0-0.3); BILIRUBIN,TOTAL 0.6 mg/dL (0.2-1.0); CREATININE 0.7 mg/dL (0.5-1.0); POTASSIUM 3.3 mmol/L (3.5-5.1)
[2024-03-15 08:00] VITALS: BP 142/85; PULSE 67; RESP 17; TEMP 98
[2024-03-15] MEDS: ENOXAPARIN SODIUM 40 MG/0.4 ML SYRINGE SQ SCH (08:11)
[2024-03-15] MEDS: PANTOPrazole 40 MG/VIAL IVP SCH (08:11)
[2024-03-15 11:41] VITALS: BP 131/79; PULSE 66; RESP 18; TEMP 98.1
[2024-03-15] MEDS: PoTASSium chloRIDE 20MEQ ER 20 MEQ ERTAB PO ONE (12:39)
== END 2024-03-15 13:50 | disposition home or self-care (01) ==
LOC: EDH 10:26 → EDHIP 10:27 → 4CH 11:25
PROVIDERS: ADMIT Internal Medicine; ATTEND Internal Medicine
DX: K29.70 Gastritis, unspecified, without bleeding (principal); J44.9 Chronic obstructive pulmonary disease, unspecified; I10 Essential (primary) hypertension; E86.0 Dehydration; E78.5 Hyperlipidemia, unspecified; C81.9A Hodgkin lymphoma, unspecified, in remission; R11.0 Nausea; Z79.899 Other long term (current) drug therapy; Z98.890 Other specified postprocedural states
CPT/HCPCS: 96365; 80076 ×2; 80048 ×2; 85027 ×2; 36415 ×2; 96372; 96366; 96375; G0378 ×27; J0696 ×2; J2470; J1650